=== PATIENT | female | born 1965 ===

== ENCOUNTER 2021-03-30 13:56 | Outpatient (REF) | payer BC, SELFPAY ==
--- NOTE | 2021-03-30 08:40 | PAPFT_PTH ---
PATIENT: Hiwot Beasley LOC: [facility] U#:[id number] AGE/SX: 55/F ROOM: RE03/30/[address]: Lizeth Bishop MD : 1965 BED: DIS: 03/30/2021 SPEC #: [id number] RECD: 03/30/21 17:10 STATUS: LILLI REJane #: [id number] RK: 03/30/21 08:[address]: Lizeth Bishop DEPT: [facility] Cytology RECD BY: Lizbeth Mejia Tissues: 1 - CX/ENDOCX FOR PAP SMEARS Procedures: PAP THIN PREP/UVM Screening HPV DNA PROBE Comments: [id number]
--- OUTSIDE RECORDS SUMMARY | 2021-03-30 14:04 | XMS_ITS ---
:1965 Author Care Team Providers Name Role Phone DR. AMBER DAVIS Primary Care Provider [phone] DR. AMBER DAVIS Referring Provider [phone] AMBER DAVIS MD Primary Care Provider [phone] Allergies Code Code System Name Reaction Severity Status Onset NKDA ? Medications Name Status Start Date Stop Date ? ? Acidophilus capsule Active ? Not availabl e Take 1 capsule every day by oral route. Multi For Her Active ? Not available once a day Sutab 1.479-0.188-0.225 gram tablet Active ? Not available as directed Vitamin D3 Active ? Not available once a day Problems Name Status Onset Date Source ? Acne Active 11/21/2020 ? Procedures Date Name Performed by ? ? Varicose Vein Operation Information not available Notes: 2019 ? [facility] Teeth Extraction Information not available Notes: L [facility] [place] Results Lab Results Date Name Specimen Result Interpretation Description Value Range Status Address ? 02/13/2021 CBC W/ Normal White Blood 5.8 3.8-10.8 Final [facility] Cell Count thousand/uL thousand/uL Diagn[facility]- [facility] [place] Lab: [address] [facility] h ? ? Normal Red Blood 4.61 3.80-5.[address] [facility] [address] Cell Count million/uL million/uL [facility] [place] [facility] [address] [facility] ? ? Normal Hemoglobin 14.2 g/dL 11.7-15.5 Final [facility] g/dL [facility] [place] [facility] ? ? Normal Hematocrit 43.4 % 35.0-45.0 % Final [facility]- [place] Lab: [address] [facility] ? ? Normal Mcv 94.1 fL 80.0-100.0 Final [facility] fL Diagnostic s- [place] [facility] [address] [facility] ? ? Normal Mch 30.8 pg 27.0-33.[address] Diagnostic [facility] Lab: [address] [facility] ? ? Normal Mchc 32.7 g/dL 32.0-36.0 Final Ques t g/dL Diagnostic [facility] Lab: [address] [facility] ? ? Normal Rdw 11.5 % 11.0-15.0 % Final [facility] Lab: [address] [facility] ? ? Normal Platelet 270 140-400 Final [facility]L [facility] [address] [facility] ? ? Normal Mpv 9.9 fL 7.5-12.5 fL Final [facility] Lab: [address] [facility] ? ? Normal Absolute [id number] Final Ques t Neutrophils cells/uL cells/uL D [facility] Lab: [address] [facility] ? ? Normal Absolute [phone] Final [facility] Lymphocytes cells/uL cells/uL D [facility] Lab: [address] [facility] ? ? Normal Absolute 458 cells/uL 200-950 Final [facility] Monocytes cells/uL Diagn [facility] Lab: [address] [facility] ? ? Normal Absolute 99 cells/uL 15-500 Final Qu est Eosinophils cells/uL [facility] Lab: [address] [facility] ? ? Normal Absolute 52 cells/uL 0-200 Final Qu est Basophils cells/uL Diagn [facility] Lab: [address] [facility] ? ? Normal Neutrophils 67.8 % ? Final Ques t Diagnostic [facility] Lab: [address] [facility] ? ? Normal Lymphocytes 21.7 % ? Final Ques t Diagnostic [facility] Lab: [address] [facility] ? ? Normal Monocytes 7.9 % ? Final [facility] Lab: [address] [facility] ? ? Normal Eosinophils 1.7 % ? Final Ques t Diagnostic [facility] Lab: [address] [facility] ? ? Normal Basophils 0.9 % ? Final [facility] Lab: [address] [facility] 02/13/2021 Lipid High Cholesterol, 226 mg/dL <200 mg/dL Final [facility] Panel, Total Diagnostic s Serum [facility] Lab: [address] [facility] ? ? Normal HDL 98 mg/dL > or = 50 Final [facility] Cholesterol mg/dL Diagn [facility] Lab: [address] [facility] ? ? Normal Triglycerides 47 mg/dL <150 mg/dL Fin al [facility] Lab: [address] [facility] ? ? High LDL-cholester 114 mg/dL ? Final [facility] ol (calc) Diagnostic [facility] Lab: [address] [facility] ? ? Normal Chol/hdlc 2.3 (calc) <5.0 (calc) [facility] Ratio Diagnostic [facility] Lab: [address] [facility] ? ? Normal Non HDL 128 mg/dL <130 mg/dL Final Q uest Cholesterol (calc) (calc) Diagn [facility] Lab: [address] [facility] 02/13/2021 BMP, Normal Glucose 105 mg/dL 65-139 mg/dL Fi nal [facility] Serum or Diagnost ics- Plasma [facility] Lab: [address] [facility] ? ? Normal Urea Nitrogen 17 mg/dL 7-25 mg/dL Fin al [facility] (BUN) Diagnostic [facility] Lab: [address] [facility] ? ? Normal Creatinine 0.86 mg/dL 0.50-1.05 Final [facility] mg/dL Diagnostic [facility] Lab: [address] [facility] ? ? Normal eGFR Non-afr. 77 > or = 60 Final [facility] [place] mL/min/1.73m mL/min/1.73m Diagnostics- [address] [place] [address] Lab: [address] [facility] ? ? Normal eGFR 89 > or = 60 Final [facility] [place] mL/min/1.73m mL/min/1.73m Diagnostics- [address] [place] [address] Lab: [address] [facility] ? ? Normal BUN/creatinin not 6-22 (calc) [facility] e Ratio applicable Diagn ostics- (calc) [facility] Lab: [address] [facility] ? ? Normal Sodium 142 mmol/L 135-146 Final Ques t mmol/L Diagnostic [facility] Lab: [address] [facility] ? ? Normal Potassium 4.2 mmol/L 3.5-5.3 Final Q uest mmol/L Diagnostic [facility] Lab: [address] [facility] ? ? Normal Chloride 105 mmol/L 98-[address] mmol/L Diagnostic [facility] Lab: [address] [facility] ? ? Normal Carbon 29 mmol/L 20-32 mmol/L Final [facility] Dioxide Diagnosti [facility] Lab: [address] [facility] ? ? Normal Calcium 10.4 mg/dL 8.6-10.4 Final Qu est mg/dL Diagnostic [facility] Lab: [address] [facility] 02/13/2021 Vitamin Normal Vitamin 45 NG/mL 30-100 NG/mL Fi nal [facility] D, D,25-Oh,total, Di agnostics- 25-[place] [place] [facility] xy, Lab: 200 Total, [facility], Serum [facility] 02/13/2021 TSH, High TSH W/reflex 7.23 mIU/L ? Fi nal [facility] Serum or to FT4 Diagnost ics- Plasma [facility] Lab: [address] [facility] 02/13/2021 T4, Normal T4, Free 0.9 NG/dL 0.8-1.8 Final [facility] Free, NG/dL Diagnostic Serum [facility] Lab: [address] [facility] Past Encounters 11/21/2020 Adult Health Examination; Vitamin D Defi ciency; Screening for Malignant Neoplasm of Colon; Screening for Malignant Neoplasm of Breast; Screening for Malignant Neoplasm of Cervix; Cervical Smear - Endoce rvical Cells Absent; Multiple Benign Nereida anocytic Nevi; Body Mass Index 30+ - Obesity Amber Davis MD: [address] [place] [address], Ph. Social History Tobacco Smoking Status Never Smoker Vaccine List Vaccine Type COVID-19, mRNA, LNP-S, PF, 30 mcg/0.3 mL dose ([place]) 08/22/2020 09/12/2020 Tdap 02/07/2016 Plan of Care Reminders Provider Appointments None ? ? recorded. Lab None ? ? recorded. Referral None ? ? recorded. Procedures None ? ? recorded. Surgeries None ? ? recorded. Imaging None ? ? recorded. Vitals Height Weight BMI Blood Pressure 60 in 155 lbs 30.3 kg/m2 116/72 mm[Hg]
== END 2021-03-30 13:57 | disposition home or self-care (01) ==
LOC: LBN 13:56
PROVIDERS: Visit Provider Obstetrics & Gynecology
DX: Z12.4 Encounter for screening for malignant neoplasm of cervix (principal); Z11.51 Encounter for screening for human papillomavirus (HPV)
CPT/HCPCS: 88142; 87624